=== PATIENT | female | born 1995 | race American Indian/Alaskan Native ===

== ENCOUNTER 2017-02-20 19:25 | Emergency (ER) | payer MEDICAID ==
[2017-02-20 19:32] VITALS: BMI 29.0
[2017-02-20 19:39] VITALS: TEMP 98.2; O2SAT 99
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
[2017-02-20 21:39] VITALS: BP 118/76; PULSE 84; RESP 18
== END 2017-02-20 21:38 | disposition home or self-care (01) ==
LOC: ED 19:25 → MERGE 19:25 → ED 21:38
DX: S09.90XA Unspecified injury of head, initial encounter (principal); S00.01XA Abrasion of scalp, initial encounter; Y04.0XXA Assault by unarmed brawl or fight, initial encounter